=== PATIENT | female | born 1960 | race Caucasian/White ===

== ENCOUNTER → 2018-05-18 10:49 | Outpatient (CLI) | payer OTHER, SELFPAY ==
--- NOTE | 2018-05-23 08:21 | PM.PFT.1 ---
Pulmonary Function Test Referral & Results Date Patient Seen: 05/18/18 Requesting provider: Danni Singh Indication: Dyspnea Results: The spirometry demonstrates an FVC of 2.82 L which is 70% of predicted. The FEV1 was measured at 2.05 L which is 73% of predicted. The FEV1/FVC ratio was 73 which is 93% of predicted. Following the administration of bronchodilator there was a 29% improvement in FEF 25-75%. Lung volumes show an SVC of 2.75 L which is 83% of predicted. The diffusing capacity was measured at 21.8 for which is 81% of predicted. No hemoglobin value was provided, so no correction for potential anemia could be made, if appropriate. The maximum voluntary ventilation was not performed. Interpretation: This study demonstrates moderate obstructive lung disease with only limited evidence of benefit following bronchodilator administration. Only improvement seen was in small airway flow based on improvement in FEF 25-75% There is also very mild restrictive lung disease present based on slight reduction in lung volumes There is minimal reduction in diffusing capacity as well, unless patient is anemic.
== END ==
PROVIDERS: PCP Internal Medicine; Visit Provider Internal Medicine
DX: R06.00 Dyspnea, unspecified (principal)
CPT/HCPCS: 94010; 94060; 94726; 94729

== ENCOUNTER → 2019-01-23 10:54 | Outpatient (CLI) | payer OTHER, SELFPAY ==
--- NOTE | 2019-01-23 | DI.CT.S_ITS ---
PROCEDURE: CT CHEST HIGH RESOLUTION INDICATIONS: INTERSTITIAL LUNG DISEASE TECHNIQUE: Noncontrast 1.0 and 5.0 mm thick contiguous axial sections from the pulmonary apex to the posterior costophrenic angles, with 7 mm thick coronal and sagittal MIP reformats. 1 mm thick dynamic expiratory images acquired through the upper, mid, and lower lungs. 1.0 mm thick axial sections acquired from the ambrose to the posterior costophrenic angles in the prone end-inspiration position. For radiation dose reduction, the following was used: automated exposure control, adjustment of mA and/or kV according to patient size. COMPARISON: None. FINDINGS: Image quality: Excellent. Lungs: Basilar scarring/atelectasis. No acute consolidation. No areas of honeycombing identified. No drainable opacity seen. No bronchiectasis identified. Correlate -defined 2 mm nodule in the lingula on image 173 series 11 is indeterminate in the absence of prior studies. Pleura: No pleural effusions or pneumothorax. Mediastinum: Heart size is normal. No pericardial effusion. Thoracic aorta and central pulmonary arteries are normal in size. Esophagus is normal in caliber. Bones and chest wall: No suspicious bony lesions. No vertebral body compression fractures. Abdomen: Hepatic hypodensity measuring 9 mm in the right lobe of the liver. IMPRESSION: Nonspecific bibasilar scarring.No evidence of honeycombing appearance. 2 mm nodule involving the lingula. A followup noncontrast CT in 12 months could be performed to document long-term stability Dictated by: Ej Joya M.D. on 01/23/2019 at 14:23 Approved by: Ej Joya M.D. on 01/23/2019 at 14:47
--- NOTE | 2019-01-29 15:18 | PM.PFT.1 ---
Pulmonary Function Test Referral & Results Date Patient Seen: 01/23/19 Requesting provider: Tr Prater Results: The spirometry demonstrates an FVC of 2.99 L which is 83% of predicted. The FEV1 was measured at 2.15 L which is 77% of predicted. The FEV1/FVC ratio was 72 which is 91% of predicted. Following the administration of bronchodilator there was I 32% improvement in FEF 25-75%. Lung volumes show an SVC of 3.04 L which is 92% of predicted. The diffusing capacity was measured at 21.73 which is 80% of predicted. No hemoglobin value was provided, so no correction for potential anemia could be made, if appropriate. The maximum voluntary ventilation was normal Interpretation: This study demonstrates perhaps very mild obstructive lung disease based on slight reduction in FEV1 as well as 32% improvement in small airway flow (based on improvement in FEF 25-75%) There is more significant reduction in diffusing capacity suggesting more significant disease the capillary alveolar level although this is still minimal Compared to PFTs performed in April 2018, spirometry is essentially unchanged as is diffusing capacity.
== END ==
PROVIDERS: PCP Internal Medicine; Visit Provider Internal Medicine
DX: J84.9 Interstitial pulmonary disease, unspecified (principal)
CPT/HCPCS: 71250; 94060; 94726; 94729

== ENCOUNTER → 2019-05-23 10:55 | Outpatient (CLI) | payer OTHER, SELFPAY ==
--- NOTE | 2019-05-31 08:47 | PM.PFT.1 ---
Pulmonary Function Test Referral & Results Date Patient Seen: 05/23/19 Requesting provider: Tr Prater Results: The spirometry demonstrates an FVC of 2.95 L which is 82% of predicted. The FEV1 was measured at 2.11 L which is 76% of predicted. The FEV1/FVC ratio was 71 which is 91% of predicted. Following the administration of bronchodilator there was a 33% improvement in FEF 25-75%. Lung volumes show an SVC of 2.88 L which is 87% of predicted. The diffusing capacity was measured at 22.95 which is 85% of predicted. No hemoglobin value was provided, so no correction for potential anemia could be made, if appropriate. The maximum voluntary ventilation was normal Interpretation: This study demonstrates mild obstructive lung disease based on reduction FEV1. There is evidence of limited benefit following bronchodilator particularly small airway flow based on improvement in FEF 25-75% There are minimal possibly in significant changes in lung volumes in diffusing capacity. Compared to PFTs performed in January of 2019, current study is essentially unchanged
== END ==
PROVIDERS: PCP Internal Medicine; Visit Provider Internal Medicine
DX: J84.9 Interstitial pulmonary disease, unspecified (principal); J44.9 Chronic obstructive pulmonary disease, unspecified
CPT/HCPCS: 94060; 94726; 94729

== ENCOUNTER → 2021-01-11 07:00 | Outpatient (CLI) | payer OTHER, SELFPAY ==
--- NOTE | 2021-01-11 | DI.MRI.S_ITS ---
PROCEDURE: MR SHOULDER RT WO CON INDICATIONS: Pain in unspecified shoulder TECHNIQUE: Noncontrast oblique coronal T2 fast spin echo with fat saturation, oblique sagittal T1 spin echo and T2 fast spin echo with fat saturation, axial T1 spin echo and T2 fast spin echo with fat saturation through the shoulder. COMPARISON: None. FINDINGS: Image quality: Excellent. Rotator cuff: Mild T2 signal elevation throughout the supraspinatus tendon at the humeral insertion site is present, indicating tendinopathy. There is a superimposed moderate grade articular surface tear of the anterior supraspinatus tendon at the humeral insertion site. There is low-grade partial-thickness intrasubstance tearing of the upper subscapularis tendon at the humeral insertion site extending the musculotendinous junction. Infraspinatus and teres minor tendons are intact. Bones and bursae: No bone marrow contusions or fractures. Moderate acromioclavicular joint degeneration. The acromion demonstrates conventional anatomy, without an os acromiale. A small amount of subacromial-subdeltoid or subcoracoid bursal fluid is present. Capsule and soft tissues: There is undercutting of the anteroinferior labrum. The long head of the biceps tendon demonstrates normal location and morphology. The rotator interval appears normal, without fibrosis. The coracohumeral ligament is normal in thickness. IMPRESSION: 1. Acromioclavicular joint osteoarthritis. 2. Supraspinatus tendinopathy with superimposed moderate grade partial-thickness tear. No full-thickness rotator cuff tear. 3. Findings suggestive of anteroinferior glenoid labral tearing. 4. Mild subacromial bursitis. Dictated by: Sathish Goldberg M.D. on 01/11/2021 at 9:44 Approved by: Sathish Goldberg M.D. on 01/11/2021 at 9:47
== END ==
PROVIDERS: PCP Internal Medicine; Referring Provider Internal Medicine; Visit Provider Internal Medicine
DX: M25.511 Pain in right shoulder (principal); M75.20 Bicipital tendinitis, unspecified shoulder; M19.011 Primary osteoarthritis, right shoulder; M75.111 Incomplete rotator cuff tear or rupture of right shoulder, not specified as traumatic; M75.51 Bursitis of right shoulder
CPT/HCPCS: 73221

== ENCOUNTER 2025-02-19 08:07 | Day surgery (SDC) | payer MEDICARE, OTHER, SELFPAY ==
[2025-02-19 08:31] VITALS: BP 149/87; PULSE 96; RESP 16; TEMP 36.1; O2SAT 100
--- NOTE | 2025-02-19 08:35 | PM.HP.IH.1 ---
History of Present Illness History of Present Illness Date Patient Seen: 02/19/25 Chief complaint: Screening Colonoscopy Narrative: Ten year follow-up colonoscopy Meds Home Medications and Allergies Home Medications ?Medication ?Instructions ?Recorded ?Confirmed ?Type conjugated estrogens 0.625 mg/gram 1 appful vaginal ##0 03/17/17 History vaginal cream (Premarin) diphenhydramine HCl 25 mg tablet 25 mg PO HSP PRN ##0 03/17/17 History (Benadryl Allergy) melatonin 3 mg tablet PO HS ##0 03/17/17 History sodium,potassium,mag sulfates 17.5 See Rx Instructions PO .COMPLEX 01/16/25 Rx gram-3.13 gram-1.6 gram oral soln #354 mL (Suprep Bowel Prep Kit) Exam Narrative Exam Narrative: Oropharynx free of lesion Assessment & Plan Assessment & Plan narrative: Ten year follow-up colonoscopy. Risks, benefits, alternatives have been explained. Time-Based Coding :: [TOTAL MINUTES] spent with patient and on the chart (including review of chart, obtaining history, exam, reviewing outside data, placing orders, documenting exam and treatment plan, and counseling patient) on [DATE]. [employer] Document charge(s): No
--- NOTE | 2025-02-19 08:36 | PM.OP.COLON ---
Operative Date/Time/Diagnoses Date of procedure: 02/19/25 Time of procedure: 09:28 Pre-op diagnosis: See indication and findings Post-op diagnosis: same Procedure & Clinicians Study performed: Colonoscopy Same procedure as scheduled: Yes Indications: Ten year follow-up screening Surgeon: Ketty Rubio Procedure Notes Procedure in detail: After informed consent was obtained the patient was placed in left lateral decubitus position. Video colonoscope was introduced the rectum slowly advanced cecum. Preparation was good. On slow withdrawal mucosa was carefully examined. The scope was removed. The patient tolerated the procedure well. Blood loss none Complications none Sedation mac Findings 1.
[2025-02-19] MEDS: LACTATED RINGERS 1,000 ML 42 ML IV (08:45)
[2025-02-19 09:28] VITALS: BP 88/52; PULSE 71; RESP 16; TEMP 36.2; O2SAT 98
[2025-02-19 09:33] VITALS: BP 94/54; PULSE 70; RESP 18; O2SAT 95
[2025-02-19 09:48] VITALS: BP 104/79; PULSE 72; RESP 14; TEMP 36.2; O2SAT 98
== END 2025-02-19 09:59 | disposition home or self-care (01) ==
PROVIDERS: Referring Provider Internal Medicine Gastroenterology; Visit Provider Internal Medicine Gastroenterology
PROC: 0DJD8ZZ Inspection of Lower Intestinal Tract, Via Natural or Artificial Opening Endoscopic (ICD-10-PCS; CPT 45378; principal; 2025-02-19 09:15)
DX: Z12.11 Encounter for screening for malignant neoplasm of colon (principal)
CPT/HCPCS: G0121; J2704